=== PATIENT | male | born 2005 | race Two or more races ===

== ENCOUNTER 2024-12-11 08:53 | Outpatient (CLI) | payer MEDICAID ==
[2024-12-11 09:40] LABS: Hematocrit 43.2 % (41.0-53.0); Hemoglobin 15.3 g/dL (13.5-17.5); Mean Corpuscular Hemoglobin 32.1 pg (28.0-32.0); Mean Corpuscular Volume 90.7 fL (80.0-100.0); Nucleated Red Blood Cells % 0.0 %
[2024-12-11 09:47] LABS: Urine Protein, UAD Negative (Negative)
[2024-12-11 09:58] LABS: Alanine Aminotransferase 26 U/L (7-40); Albumin 4.5 g/dL (3.2-4.8); Alkaline Phosphatase 52 U/L (46-116); Anion Gap 9 (5-15); Bilirubin, Total 0.8 mg/dL (0.2-1.0); Calcium 9.2 mg/dL (8.7-10.4); Carbon Dioxide 29 mmol/L (20-31); Chloride 102 mmol/L (98-107); Glucose 92 mg/dL (74-106); HDL Cholesterol 56 mg/dL (40-59); Potassium 3.9 mmol/L (3.5-5.1); Sodium 140 mmol/L (136-145); Total Protein 7.7 g/dL (5.7-8.2); Triglycerides 81 mg/dL (< 150)
[2024-12-11 10:20] LABS: BUN/Creatinine Ratio 6.0 (10.0-20.0); Blood Urea Nitrogen < 5 mg/dL (9-23); Cholesterol 200 mg/dL (< 200)
[2024-12-12 08:07] LABS: Immunoglobulin A 679 mg/dL (90-386)
== END 2024-12-11 17:00 | disposition home or self-care (01) ==
LOC: LAB 08:53
PROVIDERS: ATTEND Student in an Organized Health Care Education/Training Program
DX: Z00.01 Encounter for general adult medical examination with abnormal findings (principal)
CPT/HCPCS: 36415; 80053; 80061; 81001; 82306; 82784; 83036; 83516; 84443; 85025; 86003; 86255; 86256; 86671